=== PATIENT | female | born 1980 | race Caucasian/White ===

== ENCOUNTER 2024-06-19 07:43 | Outpatient (OUT) | payer BC, SELFPAY ==
--- NOTE | 2024-06-19 07:45 | US_ITS ---
The [address] [address] Patient Name: TORSTEN PEACE MRN: [id number] date: 1980 Sex: F Assigned Patient Location: US Current Patient Location: US Accession/Order Number: [id number] Exam Date: 06/19/2024 07:46 Report Date: 06/19/2024 08:43 At the request of: MILAGRO COWAN Procedure: US right upper quadrant EXAMINATION: US right upper quadrant HISTORY: Elevated Liver Function Test R79.89 COMPARISON: No relevant comparison available. TECHNIQUE: Transabdominal evaluation of the right upper quadrant. FINDINGS: LIVER: Normal size and echotexture. Color Doppler demonstrates patent hepatic veins. PORTAL VEIN: Duplex Doppler demonstrates normal hepatopetal flow pattern with flow velocity averaging 35 cm/s. GALLBLADDER: 2 small polyps suspected along posterior wall, 3 mm and 2 mm in size. No visible gallstones, wall thickening, or pericholecystic free fluid. Negative sonographic Chavez's sign. BILIARY: No abnormal dilation or stones. Common bile duct diameter is within normal limits. PANCREAS: No visible mass, abnormal atrophy, or duct dilation. KIDNEY: No hydronephrosis. No visible mass or stones. Size: 11.3 x 6.0 x 5.4 cm US/US right upper quadrant IMPRESSION: 1. Unremarkable liver. 2. Tiny gallbladder polyps suspected. No additional evaluation recommended this time. Electronically authenticated by: ANDRE PATEL Date: 06/19/2024 08:43
== END 2024-06-19 07:44 | disposition home or self-care (01) ==
LOC: US 07:43
PROVIDERS: PCP Family Medicine; Visit Provider Family Medicine
DX: E79.89 Other specified disorders of purine and pyrimidine metabolism (principal)
CPT/HCPCS: 76705